=== PATIENT | female | born 1930 | race Caucasian/White ===

== ENCOUNTER 2016-08-31 15:50 | Inpatient (IN) | payer MEDICARE, BC ==
--- NOTE | 2016-08-31 18:07 | XR ---
EXAMINATION TYPE: XR wrist complete RT DATE OF EXAM: 08/31/2016 6:02 PM COMPARISON: NONE HISTORY: Fall. Pain. TECHNIQUE: 4 views FINDINGS: There is osteopenia. I see no fracture nor dislocation. Carpal bones appear intact. IMPRESSION: No acute abnormality of the right wrist. No fracture.
[2016-08-31 18:54] LABS: Appearance,Urine Clear (Clear); Bilirubin,Urine Negative (Negative); Glucose,Urine (UA) Negative (Negative); Ketones,Urine Negative (Negative); Leukocyte Esterase,Urine Moderate (Negative); Mucus,Urine Rare /hpf; Nitrite,Urine Negative (Negative); Particle Count 7237; Protein,Urine Negative (Negative); Specific Gravity,Urine 1.004 (1.001-1.035); Squamous Epithelial Cell,Urine <1 /hpf (0-4); UA Billing (MACRO vs. MICRO) MICRO; Urobilinogen,Urine <2.0 mg/dL (<2.0); WBC,Urine 42 /hpf (0-5)
--- NOTE | 2016-08-31 19:27 | ED ---
Upper Extremity HPI - General Chief Complaint: Extremity Injury, Upper Stated Complaint: Fall/wrist pain & poss UTI Time Seen by Provider: 08/31/16 16:02 Source: patient Mode of arrival: ambulatory Limitations: altered mental status - History of Present Illness Initial Comments: 86-year-old female with a past medical history of dementia presented for evaluation of right wrist pain following fall 2 days ago. Then he states that she also fell a week ago and was complaining of right wrist pain and rubbing at the wrist but the most recent fall seems to bother her more. The fall was witnessed and family describes as her falling straight down and catching herself with her hands in a fall on outstretched hand mechanism. There was no head trauma, no loss of consciousness and patient has been ambulatory since then. She maintains inability to move the wrist and to pick things up although she will avoid it occasionally. They deny any other injuries. State that they have a concern for urinary tract infection as her hygiene has been poor due to her dementia and has been smelling very bad lately. They deny fevers, chills, nausea, vomiting. - Related Data Home Medications Medication Instructions Recorded Confirmed Amitriptyline HCl [Elavil] 25 mg PO HS 08/31/16 08/31/16 [id number] 1 tab PO Q4HR PRN 08/31/16 08/31/16 [Excedrin] Calcium Carbonate [Calcium] 600 mg PO DAILY 08/31/16 08/31/16 LORazepam [Ativan] 0.5 mg PO Q12H PRN 08/31/16 08/31/16 Losartan Potassium [Cozaar] 50 mg PO HS 08/31/16 08/31/16 Memantine [Namenda] 10 mg PO HS 08/31/16 08/31/16 Polyethylene Glycol 3350 [Miralax] 17 gm PO Q48H 08/31/16 08/31/16 Travoprost [Travatan Z 0.004%] 1 drop BOTH EYES HS 08/31/16 08/31/16 Previous Rx's Medication Instructions Recorded Ibuprofen [Motrin] 800 mg PO Q8HR PRN #20 tab 08/31/16 Allergies Allergy/AdvReac Type Severity Reaction Status Date / Time No Known Allergies Allergy Unverified 08/31/16 16:04 Review of Systems ROS Statement: Those systems with pertinent positive or pertinent negative responses have been documented in the HPI. ROS Other: All systems not noted in ROS Statement are negative. Constitutional: Reports: fever, chills Eyes: Denies: eye discharge, vision change ENT: Denies: ear pain, throat pain Respiratory: Denies: cough, dyspnea Cardiovascular: Denies: chest pain, palpitations Endocrine: Denies: fatigue Gastrointestinal: Denies: abdominal pain, nausea, vomiting Genitourinary: Reports: urgency, dysuria. Denies: hematuria (Malodorous urine) Musculoskeletal: Reports: other (Right wrist pain). Denies: back pain Skin: Denies: rash, lesions Neurological: Denies: headache, weakness Psychiatric: Denies: anxiety, depression Past Medical History Past Medical History: Dementia Additional Past Medical History / Comment(s): chronic back pain glacoma History of Any Multi-Drug Resistant Organisms: None Reported Past Surgical History: Hysterectomy Past Psychological History: No Psychological Hx Reported Smoking Status: Never smoker Past Alcohol Use History: None Reported Past Drug Use History: None Reported General Exam - General Exam Comments Initial Comments: General: The patient is awake and alert, in no distress, and does not appear acutely ill. Eye: Pupils are equal, round and reactive to light, extra-ocular movements are intact; there is normal conjunctiva bilaterally. No signs of icterus. Ears, nose, mouth and throat: There are moist mucous membranes and no oral lesions. Neck: The neck is supple, there is no tenderness or JVD. Cardiovascular: There is a regular rate and rhythm. No murmur, rub or gallop is appreciated. Respiratory: Lungs are clear to auscultation, respirations are non-labored, breath sounds are equal. No wheezes, stridor, rales, or rhonchi. Gastrointestinal: Soft, non-distended, mild superpubic tenderness without masses or organomegaly noted. There is no rebound or guarding present. No CVA tenderness. Bowel sounds are unremarkable. Back: There is no tenderness to palpation in the midline. There is no obvious deformity. No rashes noted. Musculoskeletal: Normal ROM, no tenderness, There is no pedal edema. There is no calf tenderness or swelling. Sensation intact. Pulses equal bilaterally 2+. Positive tenderness to the right anatomic snuffbox at the scaphoid Neurological: CN II-XII intact, There are no obvious motor or sensory deficits. Coordination appears grossly intact. Speech is normal. Skin: Skin is warm and dry and no rashes or lesions are noted. Psychiatric: Cooperative, appropriate mood & affect, normal judgment. Limitations: altered mental status Course Vital Signs 08/31/16 08/31/16 15:56 18:42 Temperature 97 F L 97.7 F Pulse Rate 87 84 Respiratory 18 14 Rate Blood Pressure 132/94 180/70 O2 Sat by Pulse 92 L 95 Oximetry Medical Decision Making - Medical Decision Making 86-year-old female presented for evaluation of right wrist pain after a fall 2 days ago. Family states that she had a fall about a week before that and also had exhibited some right wrist pain. The patient has dementia and although she is communicative she does not always say what is bothering her and does not articulated very well. They state during this time she has had decreased oral intake and does appear dehydrated. They also asked that she worked up for urinary tract infection as her urine has been more malodorous and she has been having some suprapubic abdominal pain. On physical examination she does have tenderness at the anatomic snuffbox but full range of motion to the hand with intact motor and sensation and pulses. We'll obtain right wrist x -ray as well as urine. Urine was significant for urinary tract infection but right wrist x-ray showed no acute fracture. Right wrist placed in splint and she was advised to follow- up with orthopedic surgery within the week for repeat imaging and reevaluation. Due to her dehydration and decreased oral intake the decision was made to admit her for fluid resuscitation. Family further states that she has been a flight risk lately due to her dementia and therefore request that during this admission she be seen by social work for potential placement in assisted living/ convalescent home. We'll start the patient on antibiotics to treat the urinary tract infection continue IV fluids at 75 mL an hour, and admit for further management and evaluation. Dr. Mccullough accepted the admission without any further request. Bed request submitted admission order placed and admission transfer orders initiated. - Lab Data Lab Results 08/31/16 Range/Units 18:40 Urine Color Light Yellow Urine Appearance Clear (Clear) Urine pH 7.0 (5.0-8.0) Ur Specific [place] 1.004 (1.001-1.035) Urine Protein Negative (Negative) Urine Glucose (UA) Negative (Negative) Urine Ketones Negative (Negative) Urine Blood Negative (Negative) Urine Nitrate Negative (Negative) Urine Bilirubin Negative (Negative) Urine Urobilinogen <2.0 (<2.0) mg/dL Ur Leukocyte Esterase Moderate H (Negative) Urine WBC 42 H (0-5) /hpf Ur Squamous Epith Cells <1 (0-4) /hpf Urine Mucus Rare H (None) /hpf Disposition Clinical Impression: UTI (urinary tract infection), Wrist injury, Dehydration, Decreased oral intake Disposition: ADMITTED IP TO THIS HOSP Condition: Stable Instructions: Wrist Injury (ED) Prescriptions: Ibuprofen [Motrin] 800 mg PO Q8HR PRN #20 tab PRN Reason: Analgesia Referrals: Imtiaz Torres MD [Primary Care Provider] - 1-2 days Decision to Admit Reason: Admit from EC Decision Date: 08/31/16 Decision Time: 20:26
[2016-08-31] MEDS ORDERED: NALOXONE 0.4 MG/ML 1 ML VIAL IV PRN (20:26)
[2016-08-31] MEDS ORDERED: KETOROLAC 30 MG/ML 1 ML VIAL IVP PRN (20:26)
[2016-08-31] MEDS: SODIUM CHLORIDE 0.9% 1,000 ML IV SCH (21:32)
[2016-08-31 23:25] VITALS: BMI 20.4
[2016-09-01] MEDS: SODIUM CHLORIDE 0.9% 1,000 ML IV SCH ×2 (08:12→23:22)
[2016-09-01 09:56] LABS: Basophils % (A) 1 %; CH 28.7; CHCM 32.7; Eosinophils # (A) 0.4 k/uL (0-0.7); Eosinophils % (A) 7 %; HCT 39.2 % (34.0-46.0); HDW 2.56; HGB 12.5 gm/dL (11.4-16.0); Luc # (Auto) 0.16; Luc % (Auto) 3; Lymphocytes # (A) 0.8 k/uL (1.0-4.8); Lymphocytes % (A) 15 %; MCHC 31.8 g/dL (31.0-37.0); MCV 88.1 fL (80.0-100.0); Monocytes # (A) 0.3 k/uL (0-1.0); Monocytes % (A) 6 %; Neutrophils # (A) 3.8 k/uL (1.3-7.7); Neutrophils % (A) 69 %; RBC 4.45 m/uL (3.80-5.40); RDW 13.5 % (11.5-15.5); WBC 5.5 k/uL (3.8-10.6); WBC (Perox) 6.21
[2016-09-01 10:07] LABS: Anion Gap 12 mmol/L; Blood Urea Nitrogen 12 mg/dL (7-17); Calcium 8.9 mg/dL (8.4-10.2); Carbon Dioxide 23 mmol/L (22-30); Chloride 107 mmol/L (98-107); Glucose 120 mg/dL (74-99); Non-African American GFR(MDRD) >60 (>60 ml/min/1.73 sqM); Potassium 4.2 mmol/L (3.5-5.1); Sodium 142 mmol/L (137-145)
[2016-09-01] MEDS ORDERED: LORazepam 0.5 MG TAB PO PRN (13:46)
[2016-09-01] MEDS: POLYETHYLENE GLYCOL 3350 17 GM POWD.PACK PO SCH (14:34)
[2016-09-01] MEDS: ENOXAPARIN 40 MG/0.4 ML SYRINGE SQ SCH (14:46)
--- NOTE | 2016-09-01 16:55 | CT ---
EXAMINATION TYPE: CT brain wo con DATE OF EXAM: 09/01/2016 4:38 PM COMPARISON: NONE HISTORY: Patient poor historian. Dementia(?) Fall(?) CT DLP: 729 mGycm Automated exposure control for dose reduction was used. FINDINGS: There is cerebral cortical atrophy. There is patchy hypodensity in the periventricular white matter. There is no mass effect nor midline shift. There is no sign of intracranial hemorrhage. The calvarium is intact. IMPRESSION: Cerebral atrophy and chronic small vessel ischemia. No acute intracranial abnormality. Minimal left s ided mastoiditis is noted.
[2016-09-01] MEDS: LOSARTAN 50 MG TAB PO SCH (20:53)
[2016-09-01] MEDS: AMITRIPTYLINE HCL 25 MG TAB PO SCH (20:53)
[2016-09-01] MEDS: MEMANTINE 10 MG TAB PO SCH (20:53)
[2016-09-01] MEDS: LATANOPROST 0.005% OPHTH DROPS 2.5 ML BTL BOTH EYES SCH (20:54)
--- NOTE | 2016-09-01 22:38 | HP ---
DATE OF ADMISSION: 08/31/2016 PRESENTING COMPLAINT: Confusion, fall. HISTORY OF PRESENTING COMPLAINT: This is an 86-year-old patient of Dr. Torres whose history is obtained from the nurse and the ER notes. The patient herself is confused, demented. Chronic stable medical conditions include low back pain, hypertension, glaucoma. The patient has been getting increasingly confused and having falls at home and has a fracture to the right wrist. The patient eats some. She herself cannot give much of a history, she does not known where she is. REVIEW OF SYSTEMS: Limited because the patient cannot give much of a history. PAST MEDICAL HISTORY: Dementia, hypertension, chronic low back pain, glaucoma. PAST SURGICAL HISTORY: Hysterectomy. SOCIAL HISTORY: No smoking. No alcohol. Lives with her doctor. PAST PSYCHIATRIC HISTORY: Anxiety. FAMILY HISTORY: Reviewed. The patient does not remember. HOME MEDICATIONS: 1. Namenda 10 mg at bedtime. 2. Ativan 0.5 p.o. every 12 p.r.n. 3. Calcium 600 mg p.o. daily. 4. Cozaar 50 mg p.o. at bedtime. 5. Elavil 25 mg p.o. at bedtime. 6. Travatan 0.004% one drop to both eyes at bedtime. 7. MiraLax 17 grams p.o. every 48 hours. 8. Estrogen 1 tablet p.o. every 4 p.r.n. ALLERGIES: None. On examination, temperature 97, pulse 67, respiration 18, blood pressure 130/94, pulse ox 92% on room air. GENERAL APPEARANCE: Average built, sitting up, not in distress. EYES: Pupils equal. Conjunctivae normal. HEENT: Oral cavity normal. NECK: JVD not raised. Mass not palpable. RESPIRATORY: Effort normal. LUNGS: Clear. CARDIOVASCULAR: First and second heart sounds are normal. No edema. ABDOMEN: Soft, nontender. Liver and spleen not palpable. LYMPHATIC: No lymph nodes palpable in neck or axillae. PSYCHIATRY: Answering simple questions. She does know where she is or what year it is or who the president is. EXTREMITIES: Right arm in a cast. NEUROLOGICAL: Pupils equal. No facial asymmetry. Does move all limbs. INVESTIGATIONS: Right wrist x-ray shows no acute abnormality of the right wrist. White count 5.5, hemoglobin 12.5. Potassium 4.2. BUN and creatinine normal. UA positive for leukocyte esterase and WBC. ASSESSMENT: 1. This is a patient presenting with falls, rule out orthostatic hypotension. 2. 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 3. Essential hypertension. PLAN: Will check patient's orthostatic hypotension. Get physical therapy involved. harness worker will be involved. We will give the patient IV fluids. We will do a CT scan of the brain and check patient's thyroid function, and a B12 level. Patient will get at least 2 nights before safety can be established and cause can be found.
[2016-09-02] MEDS: ENOXAPARIN 40 MG/0.4 ML SYRINGE SQ SCH (07:45)
[2016-09-02] MEDS: SODIUM CHLORIDE 0.9% 1,000 ML IV SCH (11:00)
--- NOTE | 2016-09-02 17:24 | CDI ---
In responding to this query, please exercise your independent professional judgment. The [facility] Coding Staff and Clinical Documentation Specialists appreciate your assistance in clarifying documentation, maintaining compliance with coding guidelines, accurately documenting patients condition and capturing severity of illness. The fact that a question is asked does not imply that any particular answer is desired or expected. Communication forms are a method of clarifying documentation and are not made part of the Legal Health Record. Thank you in advance for your clarification. Last Revision, June 2015 Liam Lin [address] [facility] [place] [place] [address] Documentation Clarification Form Date: 09/02/2016 5:04:00 PM From: Karon Pompa Admit Date: 08/31/2016 8:26:00 PM Patient Name: Sriram Devi Visit Number: [id number] Discharge Date: Dr. Vignesh Mccullough History/Risk Factors: Dementia, Chronic back pain, Clinical Indicators: Fall with inability to move the right wrist. Family has concern for urinary tract infection as her hygiene has been poor due to her dementia and has been smelling very bad lately. ED: reports fever, chills, urgency, dysuria. Vital Signs: 132/94 87 18 97 92 % RA WBC: 5.5 Urinalysis: Leukocyte Esterase Moderate High, WBC 42, Treatment: Antibiotics: Rocephin IV IV@75mls/hr Please document the condition that these clinical indicators signify, whether Present on Admission, and cause if known: UTI Due to Sepsis? If due to catheter, device or implant, please document Specify organism, if known Identify location of infection (if known) Bladder, Kidney, Urethra, etc.? Pyelonephritis Renal Stone Contaminated specimen Unable to determine Other Please document in your progress notes and discharge summary in order to capture severity of illness and risk of mortality. Include clinical findings that support your diagnosis. FYI: Press F11 to launch patient chart. Place X here if this finding has no clinical significance, is not applicable or if you are not able to provide any additional documentation. MTDD
[2016-09-02] MEDS: MEMANTINE 10 MG TAB PO SCH (22:05)
[2016-09-02] MEDS: LOSARTAN 50 MG TAB PO SCH (22:05)
[2016-09-02] MEDS: LATANOPROST 0.005% OPHTH DROPS 2.5 ML BTL BOTH EYES SCH (22:05)
[2016-09-02] MEDS: AMITRIPTYLINE HCL 25 MG TAB PO SCH (22:05)
[2016-09-02] MEDS: CEPHALEXIN 250 MG CAP PO SCH (22:05)
--- NOTE | 2016-09-02 22:23 | XR ---
EXAMINATION TYPE: XR chest 2V DATE OF EXAM: 09/02/2016 8:13 PM COMPARISON: NONE HISTORY: Chest pain. TECHNIQUE: Frontal and lateral views of the chest are obtained. FINDINGS: There is no focal air space opacity, pleural effusion, or pneumothorax seen. There is pul monary hyperaeration with tapering of the pulmonary vasculature peripherally most pronounced at the l ladan apices. Additionally there is increased lucency of the lung apices and minimal flattening of the diaphragms on the lateral image. Findings compatible with component of pulmonary emphysema. The cardi ac silhouette size is within normal limits. The osseous structures are intact. IMPRESSION: 1. No acute cardiopulmonary process. 2. Sequela of pulmonary emphysema.
--- NOTE | 2016-09-02 22:27 | PN ---
DATE OF SERVICE: 09/02/2016 PRESENTING COMPLAINT: Confusion, fall. INTERVAL HISTORY: This is a patient with dementia, who presented with a fall. It was initially felt the patient had a s fracture but x-rays did not show any fracture in the right wrist. Because of dementia patient not able to give much of a history. Review of systems really cannot be done. The patient is lying in bed, answers simple questions. Current medications reviewed, include IV ceftriaxone. On examination, temperature 97, pulse 86, respirations 16, blood pressure 142/75, pulse ox is 94% on room air. GENERAL APPEARANCE: Lying in bed, comfortable. EYES: Pupils equal. Conjunctivae normal. NECK: JVD not raised. Mass not palpable. RESPIRATORY: Effort normal. Lungs are clear. CARDIOVASCULAR: First and second sounds normal. No edema. ABDOMEN: Soft, nontender. Liver and spleen not palpable. PSYCHIATRY: Does answer simple questions. EXTREMITIES: Right hand in an Mil wrap. Osteoarthritis especially of knees and hands. INVESTIGATIONS: B12 is normal. TSH is normal ASSESSMENT: 1. Alzheimer's dementia, late onset, psychosis. 2. Essential hypertension. 3. Acute urinary tract infection. Exact location cannot be determined, of the infection. 4. 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 PLAN: Continue current medication and treatment plan. Looking at placement. Switch the patient to oral antibiotics. Get orthopedic opinion and treat right hand.
[2016-09-03] MEDS: SODIUM CHLORIDE 0.9% 1,000 ML IV SCH ×2 (02:12→17:15)
[2016-09-03] MEDS: ENOXAPARIN 40 MG/0.4 ML SYRINGE SQ SCH (08:56)
[2016-09-03] MEDS: CEPHALEXIN 250 MG CAP PO SCH ×3 (08:56→21:35)
--- NOTE | 2016-09-03 10:37 | P.CNOR ---
History of Present Illness - HPI Consult date: 09/03/16 Requesting physician: Papo Perez Consult reason: joint pain (right wrist) Review of Systems All systems: negative Constitutional: Denies chills, Denies fever Eyes: denies blurred vision, denies pain Ears, nose, mouth and throat: Denies headache, Denies sore throat Cardiovascular: Denies chest pain, Denies shortness of breath Respiratory: Denies cough Gastrointestinal: Denies abdominal pain, Denies diarrhea, Denies nausea, Denies vomiting Genitourinary: Denies dysuria, Denies hematuria Musculoskeletal: Denies myalgias Integumentary: Denies pruritus, Denies rash Neurological: Denies numbness, Denies weakness Psychiatric: Denies anxiety, Denies depression Endocrine: Denies fatigue, Denies weight change Past Medical History Past Medical History: Dementia, Hypertension Additional Past Medical History / Comment(s): chronic back pain glaucoma History of Any Multi-Drug Resistant Organisms: None Reported Past Surgical History: Hysterectomy Past Anesthesia/Blood Transfusion Reactions: No Reported Reaction Past Psychological History: Anxiety Smoking Status: Never smoker Past Alcohol Use History: None Reported Past Drug Use History: None Reported - Past Family History Father History Unknown: Yes Mother History Unknown: Yes Medications and Allergies Home Medications Medication Instructions Recorded Confirmed Type Amitriptyline HCl [Elavil] 25 mg PO HS 08/31/16 08/31/16 History [id number] 1 tab PO Q4HR PRN 08/31/16 08/31/16 History [Excedrin] Calcium Carbonate [Calcium] 600 mg PO DAILY 08/31/16 08/31/16 History LORazepam [Ativan] 0.5 mg PO Q12H PRN 08/31/16 08/31/16 History Losartan Potassium [Cozaar] 50 mg PO HS 08/31/16 08/31/16 History Memantine [Namenda] 10 mg PO HS 08/31/16 08/31/16 History Polyethylene Glycol 3350 [Miralax] 17 gm PO Q48H 08/31/16 08/31/16 History Travoprost [Travatan Z 0.004%] 1 drop BOTH EYES HS 08/31/16 08/31/16 History Allergies Allergy/AdvReac Type Severity Reaction Status Date / Time No Known Allergies Allergy Unverified 08/31/16 23:28 Physical Examination On inspection there is no erythema, ecchymosis, wounds, or deformity to the right wrist and upper extremity. There is some edema at the volar aspect of the wrist. The wrist and hand are nontender. There is no pain with passive ROM including wrist flexion, extension, radial/ulnar deviation. There is no snuffbox tenderness. Tinnels sign negative. Sensation and motor intact throughout right upper extremity and hand. 2+ radial pulse present and less than 2 sec cap refill present. Results Xrays of the wrist done on 08/31/16 are negative for definitive fracture. No dislocation, lesions or masses. - Labs Labs: H & H 09/01/16 Range/Units 08:56 Hgb 12.5 (11.4-16.0) gm/dL Hct 39.2 (34.0-46.0) % Result Diagrams: 09/01/16 08:56 09/01/16 08:56 Assessment and Plan (1) Wrist injury Narrative/Plan: Patient's xrays were negative for fracture and exam is relatively benign. She has no pain today on exam. The wrist splint was removed. We will continue to monitor and recheck in the am. If symptoms persist, will repeat imaging and have her utilize a removeable wrist splint/brace. Status: Acute Time with Patient: Less than 30
[2016-09-03] MEDS: POLYETHYLENE GLYCOL 3350 17 GM POWD.PACK PO SCH (15:07)
[2016-09-03] MEDS: AMITRIPTYLINE HCL 25 MG TAB PO SCH (21:34)
[2016-09-03] MEDS: LOSARTAN 50 MG TAB PO SCH (21:34)
[2016-09-03] MEDS: MEMANTINE 10 MG TAB PO SCH (21:34)
[2016-09-03] MEDS: LATANOPROST 0.005% OPHTH DROPS 2.5 ML BTL BOTH EYES SCH (21:35)
[2016-09-04] MEDS: SODIUM CHLORIDE 0.9% 1,000 ML IV SCH (05:45)
[2016-09-04] MEDS ORDERED: POLYETHYLENE GLYCOL 3350 17 GM POWD.PACK PO STA (07:31)
[2016-09-04] MEDS: CEPHALEXIN 250 MG CAP PO SCH ×2 (08:02→16:44)
[2016-09-04] MEDS: ENOXAPARIN 40 MG/0.4 ML SYRINGE SQ SCH (08:03)
--- NOTE | 2016-09-04 08:37 | PN ---
DATE OF SERVICE: 09/03/2016 PRESENTING COMPLAINT: Confusion, and fall. INTERVAL HISTORY: This patient with dementia, presented with a fall. There is no fracture in the right wrist. The patient awaiting placement and tolerating a diet. Current medications are reviewed that include Keflex. On examination, temperature 97, pulse 83, respirations 20, blood pressure 150/71, pulse ox 96% on room air. General: Lying in bed, awake. Comfortable. EYES: Pupils equal. Conjunctivae normal. Neck: JVD not raised. Mass not palpable. RESPIRATORY: Effort normal. Lungs are clear. CARDIOVASCULAR: First and second sounds normal. No edema. ABDOMEN: Soft, nontender. Liver and spleen not palpable. PSYCHIATRY: Awake, answering simple questions. Otherwise, baseline confused. INVESTIGATIONS: None from today. ASSESSMENT: 1. 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 2. Essential hypertension. 3. Acute urinary tract infection exact ( ) known. 4. 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 PLAN: Continue current medication and treatment plan. Await placement.
--- NOTE | 2016-09-04 10:28 | P.PN ---
Subjective Principal diagnosis: Right wrist sprain/contusion Patient seen at bedside today. She has been out of splint. She continues to deny wrist pain. She has no numbness or tingling. She has no other complaints. Objective - Vital Signs Vital signs: Vital Signs Temp 97.4 F L 09/04/16 07:00 Pulse 81 09/04/16 07:00 Resp 18 09/04/16 07:00 BP 128/64 09/04/16 07:00 Pulse Ox 94 L 09/04/16 07:00 Intake & Output 09/03/16 09/04/16 09/04/16 18:59 06:59 18:59 Intake Total 250 1200 Balance 250 1200 Intake: IV 1200 Sodium Chloride 0.9% 1, 1200 000 ml @ 75 mls/hr IV . [id number] ARMEN Rx#:[id number] Oral 250 Other: Voiding Method Bedside Commode Bedside Commode # Voids 2 1 - Exam Benign to inspection. No deformity. Nontender at right wrist. Mild edema at volar wrist. It is not red or echymottic. No pain with ROM in all esteves. NVI. - Constitutional General appearance: Present: no acute distress - Psychiatric Psychiatric: Present: A&O x's 3, appropriate affect - Labs CBC & Chem 7: 09/01/16 08:56 09/01/16 08:56 Assessment and Plan (1) Wrist injury Narrative/Plan: Patient's xrays were negative for fracture or dislocation. Exam continues to be relatively benign. She has no pain today on exam after being out of splint for the past 24 hrs. If symptoms persist, she may follow up as an out patient. We will sign off for now. Thank you. Status: Acute Time with Patient: Less than 30
[2016-09-04 15:49] VITALS: BP 138/71; PULSE 83; RESP 16; TEMP 97.7
--- NOTE | 2016-09-04 16:13 | DS ---
DATE OF ADMISSION: 08/31/2016 DATE OF DISCHARGE: 09/04/2016 FINAL DIAGNOSES: 1. 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 2. Essential hypertension. 3. Acute urinary tract infection. 4. Osteoarthritis of multiple joints, bilateral, primary type. HOSPITAL COURSE: This patient presented with some confusion, found to have Alzheimer's dementia. Also had some injury to the right wrist; no fracture was found. CT scan of the brain showed some chronic changes. Patient also has a UTI. On examination, patient was able to answer some simple questions. Lungs are clear. DISCHARGE MEDICATIONS: 1. Elavil 25 mg p.o. at bedtime. 2. Excedrin 1 tablet p.o. q.4 p.r.n. 3. Calcium 600 mg p.o. daily. 4. Cozaar 50 mg p.o. at bedtime. 5. Namenda 10 mg p.o. at bedtime. 6. MiraLax 17 grams p.o. q.48 hours. 7. Travatan Z 0.004% one drop to both eyes at bedtime. 8. Keflex 250 mg p.o. t.i.d.; 9 capsules. 9. Ativan 0.5 p.o. q.12 p.r.n. DISPOSITION: Walter. Follow up with Dr. Torres.
--- NOTE | 2016-09-11 11:22 | DS ---
ADDENDUM: DATE OF ADMISSION: 08/31/2016 DATE OF DISCHARGE: 09/04/2016 FINAL DIAGNOSIS: Acute urinary tract infection cause - type, unable to determine.
== END 2016-09-04 17:03 | DRG 690 ==
LOC: EC 15:50 → 4MS4W 20:26
PROVIDERS: ADMIT Hospitalist; ATTEND Hospitalist
DX: N39.0 Urinary tract infection, site not specified (principal); E86.0 Dehydration; G30.1 Alzheimer's disease with late onset; F02.80 Dementia in other diseases classified elsewhere, unspecified severity, without behavioral disturbance, psychotic disturbance, mood disturbance, and anxiety; H40.9 Unspecified glaucoma; I10 Essential (primary) hypertension; M15.9 Polyosteoarthritis, unspecified; F41.9 Anxiety disorder, unspecified; G89.29 Other chronic pain; M54.5 Low back pain; S63.501A Unspecified sprain of right wrist, initial encounter; Z79.899 Other long term (current) drug therapy; Z79.82 Long term (current) use of aspirin; W18.39XA Other fall on same level, initial encounter; Y92.9 Unspecified place or not applicable
CPT/HCPCS: 29125; 70450; 71020; 80048; 81001; 82607; 84443; 85025; 96365; 96375; 99285